=== PATIENT | male | born 1975 | race Caucasian/White ===

== ENCOUNTER → 2017-10-23 | Outpatient (CLI) | payer OTHER ==
--- NOTE | 2017-10-23 11:34 | MR ---
EXAMINATION TYPE: MR knee LT wo con DATE OF EXAM: 10/23/2017 COMPARISON: Plain film 10/07/2017 HISTORY: Left knee pain TECHNIQUE: Multiplanar, multisequence imaging of the left knee is performed without IV contrast. FINDINGS: MEDIAL MENISCUS: Linear increased signal in the posterior meniscus extends to the articular surface a nd an oblique orientation. LATERAL MENISCUS: Within the inferior aspect of the posterior horn of the lateral meniscus there is i ncreased signal extends towards the attachment medially which may be due to strain or partial tear. CRUCIATE LIGAMENTS: The anterior and posterior cruciate ligaments are intact and unremarkable. COLLATERAL LIGAMENTS: The medial collateral ligament and lateral collateral ligament complex are inta ct and unremarkable. EXTENSOR MECHANISM: Visualized quadriceps and patellar tendons are intact. EFFUSION: Minimal fluid noted about the knee POPLITEAL CYST: No popliteal/burden cyst. TRICOMPARTMENT SPACES: Maintained CARTILAGE: Intact BONE MARROW SIGNAL: No focal abnormal marrow signal is appreciated. OTHER: Suspect bipartite patella. No marrow edema to suggest fracture, correlate. Some mild increase d signal present at the insertion of the pes anserine complex may be due to some tendinopathy IMPRESSION: Meniscal signal abnormalities as described, tear of the posterior horn of the medial meniscus. Bipart ite patella.
== END ==
LOC: RADMRIMAIN 08:31
PROVIDERS: ATTEND Orthopaedic Surgery
DX: S83.242A Other tear of medial meniscus, current injury, left knee, initial encounter (principal); Q74.1 Congenital malformation of knee; R93.7 Abnormal findings on diagnostic imaging of other parts of musculoskeletal system

== ENCOUNTER → 2017-11-13 | Outpatient (CLI) | payer OTHER ==
[2017-11-13 16:13] LABS: Basophils % (A) 0 %; Eosinophils # (A) 0.3 k/uL (0-0.7); Eosinophils % (A) 2 %; HCT 46.5 % (39.0-53.0); HGB 15.3 gm/dL (13.0-17.5); Lymphocytes # (A) 2.5 k/uL (1.0-4.8); Lymphocytes % (A) 24 %; MCH 29.1 pg (25.0-35.0); MCHC 32.9 g/dL (31.0-37.0); MCV 88.5 fL (80.0-100.0); Monocytes # (A) 0.5 k/uL (0-1.0); Monocytes % (A) 4 %; Neutrophils # (A) 7.3 k/uL (1.3-7.7); Neutrophils % (A) 69 %; Platelet Count 299 k/uL (150-450); RBC 5.26 m/uL (4.30-5.90); RDW 13.6 % (11.5-15.5); WBC 10.7 k/uL (3.8-10.6)
[2017-11-13 16:21] LABS: Potassium 4.3 mmol/L (3.5-5.1)
== END | disposition home or self-care (01) ==
LOC: LABPAT 15:39
PROVIDERS: ATTEND Orthopaedic Surgery
DX: Z01.812 Encounter for preprocedural laboratory examination (principal); M23.92 Unspecified internal derangement of left knee
CPT/HCPCS: 36415; 80051; 85025

== ENCOUNTER 2017-12-04 09:47 | Day surgery (SDC) | payer OTHER ==
[2017-12-02 10:46] VITALS: BMI 39.8
--- NOTE | 2017-12-03 17:22 | HP ---
HISTORY AND PHYSICAL REASON FOR ADMISSION: Surgery 12/04/2017 HISTORY OF PRESENT ILLNESS: Dominick Farias is a 41-year-old patient seen with progressive left knee pain. Treatment options discussed. He elected to have left knee arthroscopy. Consent was obtained. PAST MEDICAL HISTORY: Hypertension, asthma, depression. PAST SURGICAL HISTORY: Knee arthroscopy. MEDICATIONS: Antihypertensive, Naprosyn, [place], ProAir. ALLERGIES: Neosporin. SOCIAL HISTORY: Patient currently smokes 1 pack of cigarettes daily. PHYSICAL EXAMINATION: Evaluation of the left knee range of motion 0-115 degrees. Tenderness medial joint line. Positive medial Sharon's. Ligaments stable. Hip rotation without pain. Distal neurovascular exam intact. RADIOGRAPHS: Radiographs of the left knee revealed a previous well-healed patellar fracture. An MRI of left knee revealed medial meniscal tear. IMPRESSION: 1. Internal derangement, left knee with medial meniscal tear. 2. History of left knee patellar fracture. 3. Hypertension. PLAN: Left knee arthroscopy with partial meniscectomy and debridement. Surgery scheduled 12/04/17. MMODL / IJN: [id number] /
[~2017-12-04 09:47] MED LIST: DEXAMETHASONE SOD PHOSPHATE 10 MG/ML 1 ML VIAL IV ONE; LACTATED RINGERS 1,000 ML IV SCH; MORPHINE SULFATE 4 MG/ML SYRINGE IV PRN; ONDANSETRON ODT 4 MG TAB PO ONE
[2017-12-04] MEDS ORDERED: LIDOCAINE 1% 20 ML VIAL (10MG/ML) FOR IV START INTRADERMA ONE (10:25)
[2017-12-04] MEDS ORDERED: ONDANSETRON 4 MG/2 ML VIAL IVP ONE (10:27)
[2017-12-04] MEDS ORDERED: fentaNYL (PF) 50 MCG/ML 2 ML AMP IV ONE ×2 (10:36→12:34)
[2017-12-04] MEDS ORDERED: MIDAZOLAM 2 MG/2 ML VIAL ONE ×2 (10:39→11:04)
[2017-12-04] MEDS ORDERED: fentaNYL (PF) 50 MCG/ML 2 ML AMP ONE ×2 (10:39→11:04)
[2017-12-04] MEDS ORDERED: SUCCINYLCHOLINE CHLORIDE VIAL 200 MG/10 ML VIAL IV ONE (11:04)
[2017-12-04] MEDS ORDERED: PROPOFOL 10 MG/ML 20 ML VIAL IV ONE (11:04)
[2017-12-04] MEDS ORDERED: MORPHINE SULFATE 10 MG/ML SYRINGE ONE (11:04)
[2017-12-04] MEDS ORDERED: KETOROLAC 30 MG/ML 1 ML VIAL ONE (11:04)
[2017-12-04] MEDS ORDERED: BUPIVACAINE (PF) 0.25% 30 ML VIAL SQ ONE (11:32)
--- NOTE | 2017-12-04 12:04 | P.OP ---
Date of Procedure: 12/04/17 Preoperative Diagnosis: Internal derangement left knee Postoperative Diagnosis: 1. Tear medial and lateral meniscus left knee 2. 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 Reactive synovitis medial and suprapatellar compartments left knee Procedure(s) Performed: 1. Arthroscopic partial medial and lateral meniscectomy left knee 2. Arthroscopic chondroplasty medial femoral condyle left knee 3. Arthroscopic partial synovectomy medial and suprapatellar compartments left knee Anesthesia: GETA, local Surgeon: Damon Cee Estimated Blood Loss (ml): 8 Pathology: none sent Condition: stable Disposition: PACU Indications for Procedure: 41-year-old patient seen with progressive left knee pain. After options regarding chamber were discussed with him he elected to proceed with arthroscopy. Operative Findings: see description of procedure Description of Procedure: Patient was taken to the operative suite. Patient underwent a general anesthetic by the department of anesthesia. Patient was given preoperative antibiotics. The left lower extremity was placed in a well-padded arthroscopic leg reed. The left leg was prepped and draped in the normal sterile orthopedic fashion. A lateral parapatellar and suprapatellar incision was made. Trochars were inserted. Arthroscopy was initiated. Suprapatellar pouch revealed diffuse thick reactive synovitis. The patellofemoral joint appeared to articulate congruently. There was mild grade 1 chondromalacia changes present with no osteochondral tears. The scope was guided into the medial gutter. No loose bodies or plica were identified. The scope was then guided into the medial compartment. A medial parapatellar incision was made. Trocar inserted followed by probe. There was a tear involving the posterior horn of the medial meniscus. There were grade 1/2 chondromalacia changes of the medial femoral condyle and grade 1 chondral my she changes of the medial tibial plateau. There was some reactive synovitis anteriorly. There were some small osteochondral tears involving the femoral condyle. I performed a partial medial meniscectomy down to stable tissue. I performed a chondroplasty of the medial femoral condyle down to stable tissue followed by a partial synovectomy. The residual meniscus was probed and found to be stable. The residual osteochondral surface of the femoral condyle was stable. There was good decompression of the synovitis. Scope and probe were then guided into the intercondylar notch. Cruciates were identified, probed and found to be stable. The scope and probe were then guided into lateral compartment. There was a small radial tear mid body lateral meniscus. No significant chondromalacia was present. No reactive synovitis. I performed a partial lateral meniscectomy down to stable tissue. The residual meniscus was stable. The scope was in guided back into the suprapatellar compartment. I introduced a motorized shaver into the super patellar compartment. I debrided some piecemeal fragments of meniscus I encountered. I performed a partial synovectomy. Shaver was removed. I took one more look around the entire knee, no residual debris. Instruments were now removed from the joint. The joint was infiltrated with .25% Marcaine. Steri-Strips were applied to the portal sites. Sterile dressings were applied. The patient was placed into a ANTONIO hose. No tourniquet was utilized. The patient was awakened, transferred to a bed and taken to recovery stable satisfactory condition.
[2017-12-04] MEDS: MEPERIDINE 50 MG/ML SYRINGE IVP ONE ×2 (12:09→12:24)
[2017-12-04 12:22] VITALS: RESP 18; TEMP 97.6
[2017-12-04] MEDS ORDERED: HYDROcodone/APAP 7.5-325MG 1 EACH TAB PO ONE (13:26)
[2017-12-04 14:04] VITALS: BP 121/82; PULSE 100
== END 2017-12-04 14:19 | disposition home or self-care (01) ==
LOC: OR 09:47
PROVIDERS: ATTEND Orthopaedic Surgery
DX: S83.242A Other tear of medial meniscus, current injury, left knee, initial encounter (principal); S83.282A Other tear of lateral meniscus, current injury, left knee, initial encounter; X58.XXXA Exposure to other specified factors, initial encounter; M94.262 Chondromalacia, left knee; M65.862 Other synovitis and tenosynovitis, left lower leg; I10 Essential (primary) hypertension; J45.909 Unspecified asthma, uncomplicated; K21.9 Gastro-esophageal reflux disease without esophagitis; F17.210 Nicotine dependence, cigarettes, uncomplicated; F32.9 Major depressive disorder, single episode, unspecified; Z86.73 Personal history of transient ischemic attack (TIA), and cerebral infarction without residual deficits; Z79.1 Long term (current) use of non-steroidal anti-inflammatories (NSAID); Z79.891 Long term (current) use of opiate analgesic; Z79.899 Other long term (current) drug therapy; Z88.3 Allergy status to other anti-infective agents
CPT/HCPCS: 29880; J2250; J0330; J1100; J2175; J2270; J0690; J2405; J3010; J1885; J2704

== ENCOUNTER 2019-06-09 09:47 | Emergency (ER) | payer OTHER ==
[2019-06-09 10:05] VITALS: BP 136/71; PULSE 97; RESP 18; TEMP 97.3
[2019-06-09] MEDS ORDERED: DIPH,PERTUS(ACELL)TETVAC-LF 0.5 ML VIAL IM ONE (10:55)
--- NOTE | 2019-06-09 10:59 | ED ---
Wound/Laceration HPI - General Chief Complaint: Wound/Laceration Stated Complaint: [facility] - LEFT EAR INJURY Time Seen by Provider: 06/09/19 10:31 Source: patient Mode of arrival: ambulatory Limitations: no limitations - History of Present Illness Initial Comments: Patient is a 43-year-old male presenting to the emergency Department with complaints of a laceration on his left ear that happened at work today. Patient states he was walking by some metal at work when it cut his left ear. Patient did not hit his head and does not have any other injuries. Patient does not remember his last tetanus vaccine. The bleeding is controlled at this time. Patient denies being on blood thinners. Patient denies fever, chills. Patient has no other complaints at this time. Upon arrival to the ER, vital signs are stable. - Related Data Home Medications Medication Instructions Recorded Confirmed ALPRAZolam [Xanax] 0.25 mg PO Q8HR PRN 07/10/17 12/04/17 QUEtiapine [SEROquel] 50 mg PO HS 07/10/17 12/04/17 amLODIPine [Norvasc] 10 mg PO DAILY 07/10/17 12/04/17 Naproxen Sodium [Naproxen Sodium 500 mg PO DAILY 12/02/17 12/04/17 ER] Varenicline Tartrate [Chantix 1 mg PO BID 12/02/17 12/04/17 Continuing Pack] Previous Rx's Medication Instructions Recorded HYDROcodone/APAP 7.5-325MG [[place] 1 each PO Q6HR PRN #30 tab 12/04/17 7.5] Allergies Allergy/AdvReac Type Severity Reaction Status Date / Time bacitracin Allergy Itching Verified 06/09/19 09:57 [From Neosporin ([id number])] bacitracin zinc Allergy Itching Verified 06/09/19 09:57 [From Neosporin ([id number])] neomycin sulfate Allergy Itching Verified 06/09/19 09:57 [From Neosporin ([id number])] polymyxin B Allergy Itching Verified 06/09/19 09:57 [From Neosporin ([id number])] medrol Allergy Itching Uncoded 06/09/19 09:57 medrol dose pack AdvReac Itching Uncoded 06/09/19 09:57 Review of Systems ROS Statement: Those systems with pertinent positive or pertinent negative responses have been documented in the HPI. ROS Other: All systems not noted in ROS Statement are negative. Past Medical History Past Medical History: Asthma, CVA/TIA History of Any Multi-Drug Resistant Organisms: None Reported Additional Past Surgical History / Comment(s): removal of kidney stone Past Psychological History: Anxiety, Depression Smoking Status: Current every day smoker General Exam - General Exam Comments Initial Comments: GENERAL: Well-appearing, well-nourished and in no acute distress. HEAD: Atraumatic, normocephalic. EYES: Pupils equal round and reactive to light, extraocular movements intact, sclera anicteric, conjunctiva are normal. ENT: TMs normal, nares patent, oropharynx clear without exudates. Moist mucous membranes. NECK: Normal range of motion, supple without lymphadenopathy or JVD. LUNGS: Breath sounds clear to auscultation bilaterally and equal. No wheezes rales or rhonchi. HEART: Regular rate and rhythm without murmurs, rubs or gallops. EXTREMITIES: Normal range of motion, no pitting or edema. No clubbing or cyanosis. NEUROLOGICAL: Cranial nerves II through XII grossly intact. PSYCH: Normal mood, normal affect. SKIN: Warm, Dry, normal turgor, no rashes. Patient has 2 superficial lacerations to the left ear. They are each 0.5 cm in length. There is no active bleeding at this time. No sutures are required. Limitations: no limitations Course Vital Signs 06/09/19 06/09/19 09:55 09:56 Temperature 98.3 F 97.3 F L Pulse Rate 91 97 Respiratory 16 18 Rate Blood Pressure 134/82 136/71 O2 Sat by Pulse 98 97 Oximetry Medical Decision Making - Medical Decision Making Patient is a 43-year-old male presenting with 2 superficial 0.5 cm lacerations to left ear. Patient was walking by some metal at work when a cut his ear. There are no other injuries. Vital signs are stable. Wounds were cleaned and Steri-Strips were applied, along with a bandage. Patient's tetanus vaccine was updated today. Patient is stable for discharge at this time. Case discussed with Dr. Avendano. Disposition Clinical Impression: Laceration of left external ear Disposition: HOME SELF-CARE Condition: Stable Instructions (If sedation given, give patient instructions): Laceration (ED) Additional Instructions: Please return to the Emergency Department if symptoms worsen or any other concerns. Keep wound covered while at work. May shower as usual and pat ear dry. Is patient prescribed a controlled substance at d/c from ED?: No Referrals: Hu Fuller DO [Primary Care Provider] - 1-2 days
== END 2019-06-09 11:30 | disposition home or self-care (01) ==
LOC: EC 09:47
DX: S01.312A Laceration without foreign body of left ear, initial encounter (principal); F41.9 Anxiety disorder, unspecified; F32.9 Major depressive disorder, single episode, unspecified; F17.200 Nicotine dependence, unspecified, uncomplicated; Z79.1 Long term (current) use of non-steroidal anti-inflammatories (NSAID); Z79.899 Other long term (current) drug therapy; Z88.1 Allergy status to other antibiotic agents; Z88.8 Allergy status to other drugs, medicaments and biological substances; Z23 Encounter for immunization; Z86.73 Personal history of transient ischemic attack (TIA), and cerebral infarction without residual deficits; W26.8XXA Contact with other sharp object(s), not elsewhere classified, initial encounter; Y93.01 Activity, walking, marching and hiking; Y92.69 Other specified industrial and construction area as the place of occurrence of the external cause; Y99.0 Civilian activity done for income or pay
CPT/HCPCS: 90471; 90715; 99283

== ENCOUNTER 2020-04-27 11:47 | Emergency (ER) | payer OTHER ==
[2020-04-27 11:55] VITALS: RESP 18
[2020-04-27] MEDS ORDERED: ACET/COD 300 MG/30 MG STARTER PACK 6 TAB BTL PO STA (12:19)
--- NOTE | 2020-04-27 12:40 | XR ---
EXAMINATION TYPE: XR ankle complete RT DATE OF EXAM: 04/27/2020 COMPARISON: NONE HISTORY: Pain FINDINGS: Three views of the ankle demonstrate the ankle mortise to be intact and symmetric. The joint spaces are preserved. The osseous structures are intact. There is a well-corticated density inferior to th e medial malleolus compatible with remote trauma. Small calcaneal spurs are seen. IMPRESSION: 1. No definite acute fracture or dislocation, if symptoms persist follow-up study in 7 to 10 days wou ld be suggested.
--- NOTE | 2020-04-27 12:42 | XR ---
EXAMINATION TYPE: XR foot complete LT DATE OF EXAM: 04/27/2020 COMPARISON: NONE HISTORY: Pain TECHNIQUE: Three views are submitted. FINDINGS: The osseous structures are intact. There is a chronic deformity of the left fifth metatarsal. Arthrop athy of the first MTP. Diffuse osteopenia. Postsurgical change involving the distal tibia. There are spurs involving the calcaneus. IMPRESSION: 1. No acute fracture or dislocation. If symptoms persist, follow-up exam in 7 to 10 days could be ob tained. 2. Changes of chronic trauma.
--- NOTE | 2020-04-27 12:48 | ED ---
Fall HPI - General Chief Complaint: Fall Stated Complaint: fall, ankle injury Time Seen by Provider: 04/27/20 12:02 Source: patient Mode of arrival: ambulatory - History of Present Illness Initial Comments: 44-year-old male presenting for right ankle pain left great toe pain left knee abrasion. Patient states that he tripped and fell today. He states that he sustained an abrasion to his left knee he has great toe pain and left-sided as well as right ankle pain. Patient states he does not believe he broke anything but wanted to be sure. Patient denies any injury to his head neck abdomen chest he denies any numbness tingling loss of sensation, loss or pallor extremity. Patient states his tetanus is updated 2 years ago patient denies additional complaints or areas of injury patient appears well and nontoxic and laboratory upon arrival - Related Data Home Medications Medication Instructions Recorded Confirmed ALPRAZolam [Xanax] 0.25 mg PO Q8HR PRN 07/10/17 12/04/17 QUEtiapine [SEROquel] 50 mg PO HS 07/10/17 12/04/17 amLODIPine [Norvasc] 10 mg PO DAILY 07/10/17 12/04/17 Naproxen Sodium [Naproxen Sodium 500 mg PO DAILY 12/02/17 12/04/17 ER] Varenicline Tartrate [Chantix 1 mg PO BID 12/02/17 12/04/17 Continuing Pack] Previous Rx's Medication Instructions Recorded HYDROcodone/APAP 7.5-325MG [[place] 1 each PO Q6HR PRN #30 tab 12/04/17 7.5] Allergies Allergy/AdvReac Type Severity Reaction Status Date / Time bacitracin Allergy Itching Verified 04/27/20 11:56 [From Neosporin ([id number])] bacitracin zinc Allergy Itching Verified 04/27/20 11:56 [From Neosporin ([id number])] neomycin sulfate Allergy Itching Verified 04/27/20 11:56 [From Neosporin ([id number])] polymyxin B Allergy Itching Verified 04/27/20 11:56 [From Neosporin ([id number])] medrol Allergy Itching Uncoded 04/27/20 11:56 medrol dose pack AdvReac Itching Uncoded 04/27/20 11:56 Review of Systems ROS Statement: Those systems with pertinent positive or pertinent negative responses have been documented in the HPI. ROS Other: All systems not noted in ROS Statement are negative. Past Medical History Past Medical History: Asthma, CVA/TIA History of Any Multi-Drug Resistant Organisms: None Reported Additional Past Surgical History / Comment(s): removal of kidney stone Past Psychological History: Anxiety, Depression Smoking Status: Current some day smoker Past Alcohol Use History: Occasional Past Drug Use History: None Reported General Exam - General Exam Comments Initial Comments: General: The patient is awake and alert, in no distress Eye: Pupils are equal, round and reactive to light, extra-ocular movements are intact. No nystagmus. There is normal conjunctiva bilaterally. No signs of icterus. Ears, nose, mouth and throat: There are moist mucous membranes and no oral lesions. No raccoon or Larkin sign Neck: The neck is supple, there is no tenderness or JVD. Cardiovascular: There is a regular rate and rhythm. No murmur, rub or gallop is appreciated. Respiratory: Lungs are clear to auscultation, respirations are non-labored, breath sounds are equal. No wheezes, stridor, rales, or rhonchi. Gastrointestinal: Soft, non-distended, non-tender abdomen without masses or organomegaly noted. There is no rebound or guarding present. Musculoskeletal: Upon inspection of the knee joints bilaterally abrasion to the left anterior knee no soft tissue swelling otherwise noted. Patient has normal inspection of the feet bilaterally no bruising no forefoot pain patient has tenderness to palpation of the left great toe no areas of openings abrasions or lacerations. Patient does have pain over the lateral mid malleolus of the right ankle there is no obvious swelling or ecchymosis laxity of the ankle joint. Patient is able to fully range with some discomfort he is able to weight-bear and ambulate. Strength 5/5 of the LE joitns equal when compared b/l. Sensation intactof the LE b/l. Radial and DP pulses equal bilaterally 2+. Neurological: A&O x 3. CN II-XII intact grossly, There are no obvious motor or sensory deficits. Coordination appears grossly intact. Speech is normal. Skin: Skin is warm and dry and no rashes or lesions are noted. Psychiatric: Cooperative, appropriate mood & affect, normal judgment. Limitations: no limitations Course Vital Signs 04/27/20 04/27/20 11:52 13:16 Temperature 98.3 F 98.1 F Pulse Rate 80 76 Respiratory 18 18 Rate Blood Pressure 148/85 140/81 O2 Sat by Pulse 98 99 Oximetry Medical Decision Making - Medical Decision Making XR (-). Ambulatory offered Moises bandage. Discussed rice treatment. tdap UTD> refused knee xr. Patient is to f/u with pcp in 1-2 days and f.u with orthopedic if the right ankle pain is persistent. patinet agreeable to this care plan and discharge at this time. Disposition Clinical Impression: Fall, Right ankle pain, Pain of left great toe, Abrasion of knee Disposition: HOME SELF-CARE Condition: Good Instructions (If sedation given, give patient instructions): Ankle Sprain (ED), R.I.C.E. Treatment (ED) Additional Instructions: Please use medication as discussed. Please follow-up with family doctor in the next 2 days. Please return to emergency room if the symptoms increase or worsen or for any other concerns. Is patient prescribed a controlled substance at d/c from ED?: No Referrals: Hu Fuller DO [Primary Care Provider] - 1-2 days Time of Disposition: 12:47
[2020-04-27 13:16] VITALS: BP 140/81; PULSE 76; TEMP 98.1
== END 2020-04-27 13:16 | disposition home or self-care (01) ==
LOC: EC 11:47
DX: S80.212A Abrasion, left knee, initial encounter (principal); M25.571 Pain in right ankle and joints of right foot; M79.675 Pain in left toe(s); F41.9 Anxiety disorder, unspecified; F32.9 Major depressive disorder, single episode, unspecified; F17.200 Nicotine dependence, unspecified, uncomplicated; Z79.899 Other long term (current) drug therapy; Z88.8 Allergy status to other drugs, medicaments and biological substances; Z86.73 Personal history of transient ischemic attack (TIA), and cerebral infarction without residual deficits; W01.0XXA Fall on same level from slipping, tripping and stumbling without subsequent striking against object, initial encounter
CPT/HCPCS: 99283

== ENCOUNTER → 2021-09-10 | Outpatient (CLI) | payer OTHER ==
--- NOTE | 2021-09-10 15:54 | XR ---
EXAMINATION TYPE: XR chest 2V DATE OF EXAM: 09/10/2021 COMPARISON: NONE TECHNIQUE: PA and lateral views submitted. HISTORY: Cough and congestion FINDINGS: The lungs are clear and there is no pneumothorax, pleural effusion, or focal pneumonia. Heart size normal. No overt failure. Arthropathy of the shoulders. Hyperinflation suggests COPD. IMPRESSION: 1. No acute process.
== END | disposition home or self-care (01) ==
LOC: RADXRMAIN 15:30
PROVIDERS: ATTEND Family Medicine
DX: R05.9 Cough, unspecified (principal); R09.89 Other specified symptoms and signs involving the circulatory and respiratory systems
CPT/HCPCS: 71046

== ENCOUNTER 2022-04-13 18:30 | Emergency (ER) | payer OTHER ==
[2022-04-13 18:48] VITALS: RESP 18
--- NOTE | 2022-04-13 19:47 | XR ---
EXAMINATION TYPE: XR lumbar spine 2 or 3V DATE OF EXAM: 04/13/2022 COMPARISON: NONE HISTORY: Back pain TECHNIQUE: 3 views FINDINGS: The lumbar vertebrae have normal alignment. Posterior elements are intact. There is anterio r spurring at L1-2 and L2-3. Sacroiliac joints are intact. IMPRESSION: Spondylotic changes in the upper lumbar spine. No fracture seen
[2022-04-13] MEDS ORDERED: HYDROmorphone 1 MG/ML 1 ML SYRINGE IM STA (21:04)
[2022-04-13] MEDS ORDERED: ORPHENADRINE 30 MG/ML 2 ML VIAL IM STA (21:04)
[2022-04-13] MEDS ORDERED: ONDANSETRON ODT 4 MG TAB PO STA (21:04)
--- NOTE | 2022-04-13 21:07 | ED ---
General Adult HPI - General Chief complaint: Back Pain/Injury Stated complaint: back injury - [facility] Time Seen by Provider: 04/13/22 20:47 Source: patient, RN notes reviewed Mode of arrival: ambulatory Limitations: no limitations - History of Present Illness Initial comments: 46-year-old male presents to the emergency Department with complaints of left lower back pain that occurred while swinging a hammer at work today. Pain is worsened with twisting motion. Has some improvement while sitting at rest. Did not take anything prior to arrival. Denies any fall or trauma. No loss of bowel or bladder control, saddle anesthesia, or foot drop. - Related Data Home Medications Medication Instructions Recorded Confirmed ALPRAZolam [Xanax] 0.25 mg PO Q8HR PRN 07/10/17 12/04/17 QUEtiapine [SEROquel] 50 mg PO HS 07/10/17 12/04/17 amLODIPine [Norvasc] 10 mg PO DAILY 07/10/17 12/04/17 Naproxen Sodium [Naproxen Sodium 500 mg PO DAILY 12/02/17 12/04/17 ER] Varenicline Tartrate [Chantix 1 mg PO BID 12/02/17 12/04/17 Continuing Pack] Previous Rx's Medication Instructions Recorded HYDROcodone/APAP 7.5-325MG [[place] 1 each PO Q6HR PRN #30 tab 12/04/17 7.5] Cyclobenzaprine [Flexeril] 10 mg PO TID PRN #15 tab 04/13/22 Ibuprofen [Motrin] 600 mg PO Q8HR PRN #30 tab 04/13/22 Allergies Allergy/AdvReac Type Severity Reaction Status Date / Time bacitracin Allergy Itching Verified 04/13/22 18:48 [From Neosporin ([id number])] bacitracin zinc Allergy Itching Verified 04/13/22 18:48 [From Neosporin ([id number])] neomycin sulfate Allergy Itching Verified 04/13/22 18:48 [From Neosporin ([id number])] polymyxin B Allergy Itching Verified 04/13/22 18:48 [From Neosporin ([id number])] medrol Allergy Itching Uncoded 04/13/22 18:48 medrol dose pack AdvReac Itching Uncoded 04/13/22 18:48 Review of Systems ROS Statement: Those systems with pertinent positive or pertinent negative responses have been documented in the HPI. ROS Other: All systems not noted in ROS Statement are negative. Past Medical History Past Medical History: Asthma, CVA/TIA History of Any Multi-Drug Resistant Organisms: None Reported Additional Past Surgical History / Comment(s): removal of kidney stone Past Psychological History: Anxiety, Depression Smoking Status: Current some day smoker Past Alcohol Use History: Occasional Past Drug Use History: None Reported General Exam Limitations: no limitations (Well-developed, well-nourished male in no acute distress. Initial temperature 98.3, pulse 76, respirations 18, blood pressure 139/77, pulse ox 96% on room air.) General appearance: alert, in no apparent distress Neck exam: Present: normal inspection. Absent: tenderness, meningismus, lymphadenopathy Respiratory exam: Present: normal lung sounds bilaterally. Absent: respiratory distress, wheezes, rales, rhonchi, stridor Cardiovascular Exam: Present: regular rate, normal rhythm, normal heart sounds. Absent: systolic murmur, diastolic murmur, rubs, gallop, clicks GI/Abdominal exam: Present: soft, normal bowel sounds. Absent: distended, tenderness, guarding, rebound, rigid Back exam: Present: muscle spasm (left lumbar discomfort). Absent: CVA tenderness (R), CVA tenderness (L), paraspinal tenderness, vertebral tenderness Neurological exam: Present: alert, oriented X3 Psychiatric exam: Present: normal affect, normal mood Course Vital Signs 04/13/22 04/13/22 18:46 22:30 Temperature 98.3 F 98.2 F Pulse Rate 96 72 Respiratory 18 18 Rate Blood Pressure 139/77 146/81 O2 Sat by Pulse 96 96 Oximetry Medical Decision Making - Medical Decision Making Physical. 46-year-old male with a past medical history of asthma and TIA who presents to the emergency department for evaluation of back pain that occurred while swinging a hammer today. Upon exam, patient is well-appearing and in no acute distress. He does have pain with movement and repositioning. X-ray was obtained and is unremarkable. Patient was given Dilaudid and Norflex with improvement. He has no red flag symptoms including foot drop, loss of bowel or bladder control, or saddle anesthesia. He will be discharged home to follow up with [facility]. In the meantime he is instructed to avoid heavy lifting and strenuous activity. May return to work on Friday with limitations. Motrin is prescribed for discomfort and Flexeril for muscle spasms. Return parameters were discussed in detail. Patient verbalizes understanding and agrees with this plan. Attending: Jose Angel. - Radiology Data Radiology results: report reviewed, image reviewed X-ray of the lumbar spine was obtained. Report was reviewed in its entirety. Impression per Dr. Smith is spondylitic changes on the upper lumbar spine. No fracture seen. Disposition Clinical Impression: Strain of lumbar region Disposition: HOME SELF-CARE Condition: Stable Instructions (If sedation given, give patient instructions): Acute Low Back Pain (ED) Additional Instructions: Rest. Avoid vigorous, strenuous, or heavy lifting. May return to work on Friday with limitations on bending pushing, and pulling. You are being prescribed Motrin for anti-inflammatory and Flexeril which is a muscle relaxer. Follow-up with [facility] for a recheck in 2 days. Return to the emergency department with any new, worsening, or concerning symptoms. Prescriptions: Cyclobenzaprine [Flexeril] 10 mg PO TID PRN #15 tab PRN Reason: Muscle Spasm Ibuprofen [Motrin] 600 mg PO Q8HR PRN #30 tab PRN Reason: Pain Is patient prescribed a controlled substance at d/c from ED?: No Referrals: Hu Fuller DO [Primary Care Provider] - 1-2 days Time of Disposition: 21:38
[2022-04-13 22:31] VITALS: BP 146/81; PULSE 72; TEMP 98.2
== END 2022-04-13 22:30 | disposition home or self-care (01) ==
LOC: EC 18:30
DX: S39.012A Strain of muscle, fascia and tendon of lower back, initial encounter (principal); J45.909 Unspecified asthma, uncomplicated; Z86.73 Personal history of transient ischemic attack (TIA), and cerebral infarction without residual deficits; F41.9 Anxiety disorder, unspecified; F32.A Depression, unspecified; F17.200 Nicotine dependence, unspecified, uncomplicated; Z88.1 Allergy status to other antibiotic agents; Z88.8 Allergy status to other drugs, medicaments and biological substances; Z79.899 Other long term (current) drug therapy; X50.1XXA Overexertion from prolonged static or awkward postures, initial encounter
CPT/HCPCS: 72100; 99283; 96372 ×2; J2360; J1170

== ENCOUNTER → 2022-04-25 | Outpatient (CLI) | payer OTHER ==
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
== END ==
LOC: SLEEP 11:05
PROVIDERS: ATTEND Internal Medicine
DX: G47.33 Obstructive sleep apnea (adult) (pediatric) (principal); Z99.89 Dependence on other enabling machines and devices; I10 Essential (primary) hypertension; J45.909 Unspecified asthma, uncomplicated; F32.A Depression, unspecified; F17.210 Nicotine dependence, cigarettes, uncomplicated; E66.9 Obesity, unspecified; Z68.41 Body mass index [BMI] 40.0-44.9, adult; Z87.828 Personal history of other (healed) physical injury and trauma
CPT/HCPCS: 99211

== ENCOUNTER → 2024-07-07 | Outpatient (CLI) | payer BC ==
[2024-07-07 13:38] VITALS: BP 129/81; PULSE 67; RESP 16; TEMP 97.5
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
== END ==
LOC: 3 N SLEEP 13:12
PROVIDERS: ATTEND Internal Medicine
DX: G47.33 Obstructive sleep apnea (adult) (pediatric) (principal); E66.9 Obesity, unspecified; Z68.35 Body mass index [BMI] 35.0-35.9, adult; I10 Essential (primary) hypertension; E78.5 Hyperlipidemia, unspecified; R32 Unspecified urinary incontinence; Z88.1 Allergy status to other antibiotic agents; Z88.8 Allergy status to other drugs, medicaments and biological substances; F17.210 Nicotine dependence, cigarettes, uncomplicated; Z87.09 Personal history of other diseases of the respiratory system; Z86.59 Personal history of other mental and behavioral disorders
CPT/HCPCS: 99212

== ENCOUNTER → 2024-07-30 | Outpatient (CLI) | payer BC | LOC: 3 N SLEEP 13:03 | PROVIDERS: ATTEND Internal Medicine | DX: G47.33 Obstructive sleep apnea (adult) (pediatric) (principal); I10 Essential (primary) hypertension; E66.09 Other obesity due to excess calories; N39.44 Nocturnal enuresis; F17.210 Nicotine dependence, cigarettes, uncomplicated; Z88.8 Allergy status to other drugs, medicaments and biological substances ==

== ENCOUNTER 2024-11-07 19:42 | Outpatient (CLI) | payer BC ==
--- NOTE | 2024-11-10 10:18 | P.PCN ---
Description of Procedure: CLINICAL: Titration with positive air pressure has been done for correction of respiratory abnormalities during sleep. DESCRIPTION OF PROCEDURE: The standard montage for clinical polysomnography included the electroencephalogram, the electrocardiogram, the mentalis surface electromyography and Lead II cardiography. The respiratory battery consisted of measurements of nasal /buccal air flow, pressure transducer measurements from the nose, thoracic and /or abdominal effort and intercostal surface electromyography. Video monitoring has been done to check for any parasomnia events. Nocturnal oxyhemoglobin saturations were obtained by finger oximetry. Step-huynh titration with positive airway pressure was utilized to control respiratory events. Raw data of sleep recording has been reviewed and is adequate. RESULTS: Sleep efficiency was extremely short 58.8%. Latency to sleep onset was significantly prolonged to 40.0 minutes.]. Sleep architecture showed stage N1 was prolonged to 11.0%, Delta sleep was absent 0%, REM sleep was significantly increased to 41.7%, possibly REM sleep rebound phenomenon. Heart rate was minimum 70 BPM, maximum 82 BPM, average 75 BPM. EMG showed 3.2 periodic limb movements per hour with 0.9 micriarousals per hour. PAP titration have been done with CPAP up to the pressure 15 cm H2O. Patient had problems with CPAP, switched to BPAP. BPAP titrated up to 22/18 cm H2O. The best results were at the pressure 22/18 cm H2O. Apnea hypopnea index reduced to 2.6. IMPRESSION: 1. Obstructive sleep apnea hypopnea syndrome on controle with BPAP treatment. 2. No significant periodic limb movements have been documented. Please see other impressions from consultation. PLAN: 1. The patient will have treatment with positive air pressure equipment with the level of pressure AutoBPAP with maximal inspiratory pressure 22, minimal expiratory pressure 10, pressure support 4 cm H2O and should use it every night for the whole night. 2. Watching weight. 3. Sleep hygiene with regular time in bed for at least 8 hours. 4. No driving if feeling any sleepiness. 5. I will see the patient for follow up visit to explain the results of the test, recommendations, check compliance with treatment and make any necessary adjustment related to mask fitting, pressure and humidification. Thank you very much for allowing me to participate in the management of your patient. Sincerely, Emeterio Vaughn MD, PhD, FAASM Diplomat of [place] [employer] Sleep Medicine Board of [place] [employer] Superintendent of [facility] [place] cc: Hu Fuller DO
== END 2024-11-08 05:30 | disposition home or self-care (01) ==
LOC: 3 N SLEEP 19:42
PROVIDERS: ATTEND Internal Medicine
DX: G47.33 Obstructive sleep apnea (adult) (pediatric) (principal); F17.200 Nicotine dependence, unspecified, uncomplicated; Z99.89 Dependence on other enabling machines and devices; Z88.1 Allergy status to other antibiotic agents; Z88.8 Allergy status to other drugs, medicaments and biological substances
CPT/HCPCS: 95811